=== PATIENT | female | born 1960 | race Caucasian/White ===

== ENCOUNTER 2023-10-03 19:37 | Emergency (ER) | payer OTHER ==
[2023-10-03 19:43] VITALS: BP_SYST 106; PULSE 88; RESP 22; TEMP 96.5; O2SAT 99
[2023-10-03] MEDS ORDERED: LIDOCAINE/EPI 2% 1:100000 20 ML VIAL INJ ONE (19:45)
[2023-10-03] MEDS ORDERED: DIPHTH,PERTUSS(ACELL),TET VAC 0.5 ML VIAL (Tdap) I.M. ONE (20:30)
[2023-10-03 21:23] VITALS: BP_SYST 106; PULSE 88; RESP 22; TEMP 96.5; O2SAT 99
== END 2023-10-03 21:23 | disposition home or self-care (01) ==
LOC: SED 19:37
DX: S31.119A Laceration without foreign body of abdominal wall, unspecified quadrant without penetration into peritoneal cavity, initial encounter (principal); Z88.0 Allergy status to penicillin; Z88.1 Allergy status to other antibiotic agents; Z88.8 Allergy status to other drugs, medicaments and biological substances; Z79.899 Other long term (current) drug therapy; X58.XXXA Exposure to other specified factors, initial encounter; Y93.89 Activity, other specified; Y92.89 Other specified places as the place of occurrence of the external cause; Y99.8 Other external cause status
CPT/HCPCS: 90715; 99283